=== PATIENT | female | born 2000 | race American Indian/Alaskan Native ===

== ENCOUNTER 2019-04-12 17:20 | Emergency (ER) | payer OTHER ==
[2019-04-12 18:31] LABS: Bilirubin,Urine NEG (Negative); Blood,Urine LG (Negative); Color,Urine Amber (Yellow); Mucus,Urine 2+ /HPF; Urobilinogen,Urine < 2.0 mg/dL (<2.0)
[2019-04-12 18:35] LABS: RBC,Urine > 182.0 /HPF (0.0-6.0)
[2019-04-12 20:50] LABS: Basophils % (Auto) 0.3 % (0.0-1.8); Eosinophils % (Auto) 0.2 % (0.0-4.3); Hematocrit 38.4 % (30.3-42.9); Hemoglobin 12.6 gm/dl (10.1-14.3); Lymphocytes % (Auto) 20.4 % (13.4-35.0); Mean Corpuscular HGB Conc 33 % (30-34); Mean Corpuscular Volume 86 fl (79-97); Monocytes # (Auto) 0.4 K/mm3 (0.0-0.8); Monocytes % (Auto) 7.8 % (0.0-7.3); Platelet Count 295 K/mm3 (140-440); Red Blood Count 4.47 M/mm3 (3.65-5.03); Red Cell Distribution Width 14.7 % (13.2-15.2)
[2019-04-12] MEDS ORDERED: NACL 0.9% 1000 ML 1,000 ML IV ONE (21:15)
[2019-04-12] MEDS ORDERED: ZOFRAN IV STA (21:15)
[2019-04-12] MEDS ORDERED: LEVSIN SL SL ONE (21:15)
[2019-04-12 21:16] LABS: Alanine Aminotransferase 10 units/L (7-56); BUN/Creatinine Ratio 9; Blood Urea Nitrogen 6 mg/dL (7-17); Calcium 9.1 mg/dL (8.4-10.2); Hemolysis Index 34
--- NOTE | 2019-04-12 23:13 | Ultrasound Report ---
PROCEDURE: Limited abdominal ultrasound. TECHNIQUE: Real-time sonography was performed of the right upper quadrant of the abdomen with image documentation. HISTORY: Right upper quadrant abdominal pain. COMPARISONS: None. FINDINGS: The liver is grossly normal. The abdominal aorta has a normal caliber as far as visualized. The pancr eas is not adequately visualized. The gallbladder is adequately distended with normal wall thickness. There are no gallstones. The common hepatic duct measures 1.5 mm. The right kidney appears normal in size and configuration. The portal vein is patent by color flow imaging. IMPRESSION: Nonvisualization of the pancreas. Otherwise normal study. This document is electronically signed by Jad Washington MD., Apr 12 2019 11:11:22 PM ET
--- NOTE | 2019-04-12 23:45 | Emergency Department Report ---
ED Female HPI - General Chief complaint: Abdominal Pain Stated complaint: ABD PAIN Time Seen by Provider: 04/12/19 18:28 Source: patient Mode of arrival: Ambulatory Limitations: No Limitations - History of Present Illness Initial comments: 18-year-old -[place] female since Wednesday department complaining of a long history of waxing and waning nausea and vomiting and diarrhea which she is beginning to experience another episode started about 4 AM this morning. States she has had several episodes of vomiting and loose stool. Reports no h ematemesis, hematochezia, chest pain, palpitations. No fever, chills, sweats. She reports no vaginal discharge chart, but has been having some increased urinary frequency. MD Complaint: dysuria Radiation: non-radiating Severity: mild Quality: dull Improves with: none Worsens with: none Are you Now?: No Associated Symptoms: denies: vaginal discharge, vaginal bleeding, abdominal pain, nausea/vomiting, syncope, weakness - Related Data Previous Rx's Medication Instructions Recorded Last Taken Type Ibuprofen [Motrin] 800 mg PO Q8HR PRN #90 tablet 08/20/15 Unknown Rx traMADol [Ultram] 50 mg PO Q6HR PRN #20 tablet 08/20/15 Unknown Rx Hyoscyamine Subl [Levsin Sl 0.125 0.125 mg SL Q4HR PRN #20 tablet 08/27/18 Unknown Rx TAB] Ondansetron [Zofran Odt] 4 mg PO Q6HR #10 tab.rapdis 08/27/18 Unknown Rx Hyoscyamine Subl [Levsin Sl 0.125 0.125 mg SL Q6HR PRN #20 tab 04/12/19 Unknown Rx TAB] Metoclopramide [Reglan] 10 mg PO BID #10 tab 04/12/19 Unknown Rx Nitrofurantoin [place]/M-Cryst 100 mg PO Q12HR #20 capsule 04/12/19 Unknown Rx [Macrobid CAP] Allergies Allergy/AdvReac Type Severity Reaction Status Date / Time No Known Allergies Allergy Verified 08/27/18 12:01 ED Review of Systems ROS: Stated complaint: ABD PAIN Other details as noted in HPI Constitutional: denies: chills, fever Eyes: denies: eye pain, eye discharge, vision change ENT: denies: ear pain, throat pain Respiratory: denies: cough, shortness of breath, wheezing Cardiovascular: denies: chest pain, palpitations Endocrine: no symptoms reported Gastrointestinal: nausea, vomiting, diarrhea. denies: abdominal pain Genitourinary: denies: urgency, dysuria, discharge Musculoskeletal: denies: back pain, joint swelling, arthralgia Skin: denies: rash, lesions Neurological: denies: headache, weakness, paresthesias Psychiatric: denies: anxiety, depression Hematological/Lymphatic: denies: easy bleeding, easy bruising ED Past Medical Hx - Past Medical History Previous Medical History?: No - Surgical History Past Surgical History?: Yes Additional Surgical History: Right ankle - Social History Smoking Status: Never Smoker Substance Use Type: None - Medications Home Medications: Home Medications Medication Instructions Recorded Confirmed Last Taken Type Ibuprofen [Motrin] 800 mg PO Q8HR PRN #90 tablet 08/20/15 Unknown Rx traMADol [Ultram] 50 mg PO Q6HR PRN #20 tablet 08/20/15 Unknown Rx Hyoscyamine Subl [Levsin Sl 0.125 0.125 mg SL Q4HR PRN #20 tablet 08/27/18 Unknown Rx TAB] Ondansetron [Zofran Odt] 4 mg PO Q6HR #10 tab.rapdis 08/27/18 Unknown Rx Hyoscyamine Subl [Levsin Sl 0.125 0.125 mg SL Q6HR PRN #20 tab 04/12/19 Unknown Rx TAB] Metoclopramide [Reglan] 10 mg PO BID #10 tab 04/12/19 Unknown Rx Nitrofurantoin [place]/M-Cryst 100 mg PO Q12HR #20 capsule 04/12/19 Unknown Rx [Macrobid CAP] ED Physical Exam - General Limitations: No Limitations General appearance: alert, in no apparent distress - Head Head exam: Present: atraumatic, normocephalic - Eye Eye exam: Present: normal appearance, PERRL, EOMI - ENT ENT exam: Present: mucous membranes moist - Neck Neck exam: Present: normal inspection - Respiratory Respiratory exam: Present: normal lung sounds bilaterally. Absent: respiratory distress - Cardiovascular Cardiovascular Exam: Present: regular rate, normal rhythm. Absent: systolic murmur, diastolic murmur, rubs, gallop - GI/Abdominal GI/Abdominal exam: Present: soft, tenderness (diffuse abdominal tenderness with palpation. No masses are appreciated. No Stewart sign, no McBurney's tenderness, no Rovsing, no Coello Llanos. There is questionable Olson sign on examination, but no distention noted.), normal bowel sounds. Absent: guarding, rebound, hyperactive bowel sounds, hypoactive bowel sounds - Extremities Exam Extremities exam: Present: normal inspection - Back Exam Back exam: Present: normal inspection - Neurological Exam Neurological exam: Present: alert, oriented X3 - Psychiatric Psychiatric exam: Present: normal affect, normal mood - Skin Skin exam: Present: warm, dry, intact, normal color. Absent: rash ED Course Vital Signs 04/12/19 17:24 Temperature 97.8 F Pulse Rate 72 Respiratory 18 Rate Blood Pressure 163/96 O2 Sat by Pulse 100 Oximetry ED Medical Decision Making - Lab Data Result diagrams: 04/12/19 20:20 04/12/19 20:20 - Radiology Data Radiology results: report reviewed (the ultrasound shows no acute processes) - Medical Decision Making 18-year-old female with a long history of recurrent gastrointestinal issues that needed to follow-up with GI doctor although she stated that she previously saw her tie maker and that was recommended. States she's had multiple CAT scans, ultrasounds, and various studies on her abdomen, but not yet found the reasoning for her flareups of constipation, diarrhea and abdominal pain and cramping. We discussed various gastrointestinal issues including IBS, also colitis, Crohn's, exocrine pancreatic insufficiency. She been encouraged to follow with community services manager for definitive evaluation and management of these abdominal symptoms. Her symptoms did improve with the m edication provided today. She understand that this is only temporary. Critical care attestation.: If time is entered above; I have spent that time in minutes in the direct care of this critically ill patient, excluding procedure time. ED Disposition Clinical Impression: Abdominal pain, Vomiting and diarrhea, UTI (urinary tract infection) Disposition: -01 TO HOME OR SELFCARE Is pt being admited?: No Does the pt Need Aspirin: No Condition: Stable Instructions: Abdominal Pain (ED), Acute Nausea and Vomiting (ED), Gastroenteritis (ED), Phenazopyridine (By mouth), Dysuria (ED), Urinary Tract Infection in Women (ED) Referrals: IVETT SERRA MD [Primary Care Provider] - 3-5 Days [facility] [Provider Group] - 3-5 Days
[2019-04-13 00:12] VITALS: BP 133/86
== END 2019-04-13 00:11 | disposition home or self-care (01) ==
LOC: ED 17:20
DX: N39.0 Urinary tract infection, site not specified (principal); R11.2 Nausea with vomiting, unspecified; R19.7 Diarrhea, unspecified; R10.84 Generalized abdominal pain
CPT/HCPCS: 36415; 76705; 80053; 81001; 83690; 84703; 85025; 96361; 96374; 99284; J2405; J7030

== ENCOUNTER 2019-07-27 15:23 | Emergency (ER) | payer SELFPAY ==
--- NOTE | 2019-07-27 15:35 | Emergency Department Report ---
Blank Doc - Documentation Documentation: 18-year-old female that presents with n/v and abdominal pain. This initial assessment/diagnostic orders/clinical plan/treatment(s) is/are subject to change based on patient's health status, clinical progression and re- assessment by fellow clinical providers in the ED. Further treatment and workup at subsequent clinical providers discretion. Patient/guardians urged not to elope from the ED as their condition may be serious if not clinically assessed and managed. Initial orders include: 1- Patient sent to [facility] for further evaluation and treatment 2- labs 3- UA
[2019-07-27 15:56] LABS: Basophils % (Auto) 0.4 % (0.0-1.8); Eosinophils % (Auto) 0.4 % (0.0-4.3); Hematocrit 39.8 % (30.3-42.9); Hemoglobin 13.2 gm/dl (10.1-14.3); Lymphocytes # (Auto) 1.4 K/mm3 (1.2-5.4); Mean Corpuscular HGB Conc 33 % (30-34); Mean Corpuscular Volume 85 fl (79-97); Monocytes # (Auto) 0.3 K/mm3 (0.0-0.8); Monocytes % (Auto) 5.3 % (0.0-7.3); Platelet Count 341 K/mm3 (140-440); Red Blood Count 4.68 M/mm3 (3.65-5.03); Red Cell Distribution Width 14.3 % (13.2-15.2)
[2019-07-27 16:19] LABS: Alanine Aminotransferase 11 units/L (7-56); Albumin 4.4 g/dL (3.9-5); BUN/Creatinine Ratio 6; Blood Urea Nitrogen 5 mg/dL (7-17); Calcium 9.4 mg/dL (8.4-10.2); Hemolysis Index 10
[2019-07-27 17:28] LABS: Bilirubin,Urine NEG (Negative); Blood,Urine LG (Negative); Calcium Oxalate Crystals,Urine 2+; Color,Urine Amber (Yellow); Mucus,Urine 3+ /HPF; Urobilinogen,Urine < 2.0 mg/dL (<2.0)
[2019-07-27] MEDS ORDERED: NACL 0.9% 1000 ML 1,000 ML IV ONE (18:33)
[2019-07-27] MEDS ORDERED: ZOFRAN IV ONE (18:33)
--- NOTE | 2019-07-27 19:22 | Emergency Department Report ---
ED General Adult HPI - General Chief complaint: Nausea/Vomiting/Diarrhea Stated complaint: VOMIT/STOMACH PAIN Time Seen by Provider: 07/27/19 15:34 Source: patient Mode of arrival: Ambulatory Limitations: No Limitations - History of Present Illness Initial comments: 18-year-old -[place] female presents to the emergency room complaining of nausea vomiting abdominal cramping and diarrhea. Patient states that every month around her. She had these symptoms. Patient's started her menses on 07/27/2019. Patient has taken no pain medication for her symptoms. Patient is 0 para 0. Patient denies any dysuria or fever, chest pain, shortness of breathing. -: Last night Location: abdomen Severity scale (0 -10): 8 Quality: other (cramping) Consistency: intermittent Associated Symptoms: nausea/vomiting. denies: chest pain, diaphoresis, fever/chills, headaches, loss of appetite, shortness of breath, syncope, weakness Treatments Prior to Arrival: none - Related Data Previous Rx's Medication Instructions Recorded Last Taken Type Ibuprofen [Motrin] 800 mg PO Q8HR PRN #90 tablet 08/20/15 Unknown Rx traMADol [Ultram] 50 mg PO Q6HR PRN #20 tablet 08/20/15 Unknown Rx Hyoscyamine Subl [Levsin Sl 0.125 0.125 mg SL Q4HR PRN #20 tablet 08/27/18 Unknown Rx TAB] Ondansetron [Zofran Odt] 4 mg PO Q6HR #10 tab.rapdis 08/27/18 Unknown Rx Hyoscyamine Subl [Levsin Sl 0.125 0.125 mg SL Q6HR PRN #20 tab 04/12/19 Unknown Rx TAB] Metoclopramide [Reglan] 10 mg PO BID #10 tab 04/12/19 Unknown Rx Nitrofurantoin [place]/M-Cryst 100 mg PO Q12HR #20 capsule 04/12/19 Unknown Rx [Macrobid CAP] Naproxen [Naprosyn] 500 mg PO BID PRN #20 tablet 07/27/19 Unknown Rx Ondansetron [Zofran Odt] 4 mg PO Q8HR PRN #15 tab.rapdis 07/27/19 Unknown Rx Allergies Allergy/AdvReac Type Severity Reaction Status Date / Time No Known Allergies Allergy Verified 08/27/18 12:01 ED Review of Systems ROS: Stated complaint: VOMIT/STOMACH PAIN Other details as noted in HPI Comment: All other systems reviewed and negative ED Past Medical Hx - Surgical History Additional Surgical History: Right ankle - Social History Smoking Status: Never Smoker Substance Use Type: None - Medications Home Medications: Home Medications Medication Instructions Recorded Confirmed Last Taken Type Ibuprofen [Motrin] 800 mg PO Q8HR PRN #90 tablet 08/20/15 Unknown Rx traMADol [Ultram] 50 mg PO Q6HR PRN #20 tablet 08/20/15 Unknown Rx Hyoscyamine Subl [Levsin Sl 0.125 0.125 mg SL Q4HR PRN #20 tablet 08/27/18 Unknown Rx TAB] Ondansetron [Zofran Odt] 4 mg PO Q6HR #10 tab.rapdis 08/27/18 Unknown Rx Hyoscyamine Subl [Levsin Sl 0.125 0.125 mg SL Q6HR PRN #20 tab 04/12/19 Unknown Rx TAB] Metoclopramide [Reglan] 10 mg PO BID #10 tab 04/12/19 Unknown Rx Nitrofurantoin [place]/M-Cryst 100 mg PO Q12HR #20 capsule 04/12/19 Unknown Rx [Macrobid CAP] Naproxen [Naprosyn] 500 mg PO BID PRN #20 tablet 07/27/19 Unknown Rx Ondansetron [Zofran Odt] 4 mg PO Q8HR PRN #15 tab.rapdis 07/27/19 Unknown Rx ED Physical Exam - General Limitations: No Limitations General appearance: alert, in no apparent distress - Head Head exam: Present: atraumatic, normocephalic - Eye Eye exam: Present: normal appearance - ENT ENT exam: Present: mucous membranes moist - Respiratory Respiratory exam: Present: normal lung sounds bilaterally. Absent: respiratory distress - Cardiovascular Cardiovascular Exam: Present: regular rate, normal rhythm. Absent: systolic murmur, diastolic murmur, rubs, gallop - GI/Abdominal GI/Abdominal exam: Present: soft, normal bowel sounds. Absent: distended, tenderness, guarding - Extremities Exam Extremities exam: Present: normal inspection - Back Exam Back exam: Present: normal inspection - Neurological Exam Neurological exam: Present: alert, oriented X3, normal gait - Psychiatric Psychiatric exam: Present: normal affect, normal mood - Skin Skin exam: Present: warm, dry, intact, normal color. Absent: rash ED Course Vital Signs 07/27/19 15:34 Temperature 98 F Pulse Rate 67 Respiratory 12 Rate Blood Pressure 161/98 [Left] O2 Sat by Pulse 98 Oximetry ED Medical Decision Making - Lab Data Result diagrams: 07/27/19 15:49 07/27/19 15:49 - Medical Decision Making 18-year-old -[place] female presents to the emergency room complaining of nausea vomiting abdominal cramping and diarrhea. Patient states that every month around her. She had these symptoms. Patient's started her menses on 07/27/2019. Patient has taken no pain medication for her symptoms. Patient is 0 para 0. Patient denies any dysuria or fever, chest pain, shortness of breathing. IV insertion normal saline 1 L Zofran 4 mg IV Toradol 15 mg IV. Critical care attestation.: If time is entered above; I have spent that time in minutes in the direct care of this critically ill patient, excluding procedure time. ED Disposition Clinical Impression: Syndrome of menstruation Disposition: DC-01 TO HOME OR SELFCARE Is pt being admited?: No Does the pt Need Aspirin: No Condition: Stable Instructions: Premenstrual Syndrome (ED) Additional Instructions: Take medication as prescribed. Follow up with an SWITCHBOARD OPERATOR ASSISTANT. Prescriptions: Naproxen [Naprosyn] 500 mg PO BID PRN #20 tablet PRN Reason: Pain , Severe (7-10) Ondansetron [Zofran Odt] 4 mg PO Q8HR PRN #15 tab.rapdis PRN Reason: Nausea And Vomiting Referrals: PRIMARY CARE, [Primary Care Provider] - 3-5 Days RYANNE BLEVINS MD [Staff Physician] - 3-5 Days SANDRINE ROSAS MD [Staff Physician] - 3-5 Days JALEN LINN MD [Staff Physician] - 3-5 Days
[2019-07-27] MEDS ORDERED: TYLENOL ONE (19:25)
[2019-07-27] MEDS ORDERED: TORADOL ONE (19:27)
[2019-07-27] MEDS ORDERED: TORADOL IV ONE (19:33)
[2019-07-27] MEDS ORDERED: ZOFRAN ODT PO ONE (20:54)
[2019-07-27] MEDS ORDERED: ZOFRAN ODT ONE (20:55)
[2019-07-27 20:57] VITALS: BP 148/81
== END 2019-07-27 20:55 | disposition home or self-care (01) ==
LOC: ED 15:23
DX: N92.0 Excessive and frequent menstruation with regular cycle (principal); R11.2 Nausea with vomiting, unspecified; Z98.890 Other specified postprocedural states; Z79.899 Other long term (current) drug therapy
CPT/HCPCS: 36415; 80053; 81001; 83690; 84703; 85025; 87086; 96361; 96374; 96375; 99283; J1885; J2405; J7030; Q0162